=== PATIENT | male | born 1945 | race Caucasian/White ===

== ENCOUNTER → 2019-12-02 14:10 | Outpatient (BNVA) | payer MEDICARE, SELFPAY | PROVIDERS: Family Provider Internal Medicine; PCP Family Medicine; Visit Provider Nurse Practitioner Family | DX: J11.1 Influenza due to unidentified influenza virus with other respiratory manifestations (principal); J32.9 Chronic sinusitis, unspecified | CPT/HCPCS: 87804 ==

== ENCOUNTER 2019-12-09 15:57 | Outpatient (CLI) | payer MEDICARE, SELFPAY ==
--- NOTE | 2019-12-09 16:08 | XR_ITS ---
WS: [id number] LATERAL LUMBAR SPINE: 3 view. Lateral radiographs are performed in upright neutral, flexion and extension to the patient's toleranc e. HISTORY: LOW BACK PAIN COMPARISON: None available. L3 anterolisthesis by 3 mm. With flexion and extension no significant change. Advanced degenerative c hanges at L4-5 and L5-S1. Diffuse osteopenia. Marked facet joint arthropathy at L4-5 and L5-S1. XR/XR lumbar spine f/e only 13998 IMPRESSION: 1. Advanced degenerative changes in the spine. No instability. 2. L3 anterolisthesis by 3 mm.
== END 2019-12-09 15:58 | disposition home or self-care (01) ==
LOC: RADWPI 16:03
PROVIDERS: Family Provider Internal Medicine; PCP Family Medicine; Visit Provider Nurse Practitioner
DX: M47.896 Other spondylosis, lumbar region (principal); M54.5 Low back pain
CPT/HCPCS: 72120

== ENCOUNTER → 2020-07-28 13:33 | Outpatient (BNVA) | payer MEDICARE, SELFPAY | PROVIDERS: Family Provider Internal Medicine; PCP Family Medicine; Visit Provider Family Medicine | DX: M79.672 Pain in left foot (principal) | CPT/HCPCS: 73630 ==

== ENCOUNTER 2020-10-20 14:04 | Outpatient (CLI) | payer MEDICARE, SELFPAY ==
--- NOTE | 2020-10-20 13:30 | USCV_ITS ---
Wei Rose Age: 75 Gender: M : 1945 Exam Date: 10/20/2020 14:15 Ordering Phys: Rui Prince MD ([place]) ([email or web address] [place] Technologist: Jessica Lee [place] [facility] [place]: occlusion and stenosis of bilat carotid stenosis. H/O Rt CEA Risk Factors: Previous Vascular Surgery: Right Brachial BP: / Left Brachial BP: / Right Left Velocity (cm/s) Spectral Plaque Velocity (cm/s) Spectral Plaque Syst/Diast Broadening Syst/Diast Broadening 89.30/ 12.10 Prox CCA 101.70/ 20.50 68.50/ 11.20 Mid CCA 91.40 / 17.10 64.70/ 16.70 Distal CCA 69.20 / 17.10 80.00/ 15.50 Prox ICA 195.00/ 58.30 89.30/ 33.40 Mid ICA 106.90/ 30.90 101.80/33.40 Distal ICA 111.40/ 36.40 124.90 ECA 90.60 1.14 ICA/CCA 1.92 Antegrade Vertebral Antegrade 74.60/ 17.90 cm/s 59.30/ 9.80 cm/s Tri Subclavian Tri 167.3 213.6 0 0 FINDINGS Comparison:. 07/24/19. Mild elevation of left ICA velocity without significant [place]. Less stenosis as compared to the most recent study. Mild bilateral carotid atherosclerosis. Bilateral antegrade vertebral arteries. CONCLUSIONS Bilateral ICA stenosis less than 50%. Slight greater stenosis on the left. Dr. Patricia Jaffe DO (Electronically Signed) Final Date: 20 October 2020 15:03 S
== END 2020-10-20 14:05 | disposition home or self-care (01) ==
PROVIDERS: PCP Family Medicine; Visit Provider Thoracic Surgery (Cardiothoracic Vascular Surgery)
DX: I65.23 Occlusion and stenosis of bilateral carotid arteries (principal)
CPT/HCPCS: 93880

== ENCOUNTER → 2021-03-23 13:33 | Outpatient (BNVA) | payer MEDICARE, SELFPAY | PROVIDERS: PCP Family Medicine; Visit Provider Family Medicine | DX: E03.9 Hypothyroidism, unspecified (principal); E11.9 Type 2 diabetes mellitus without complications; E78.2 Mixed hyperlipidemia; I10 Essential (primary) hypertension | CPT/HCPCS: 80053; 80061; 83036; 84443 ==